=== PATIENT | male | born 1960 | race Caucasian/White ===

== ENCOUNTER 2018-03-17 11:59 | Emergency (ER) | payer OTHER ==
[2018-03-17] MEDS ORDERED: ONDANSETRON 4 MG/2 ML VIAL IVP ONE (12:40)
[2018-03-17] MEDS ORDERED: HYDROmorphONE/DILAUDID 2 MG/ML INJ IVP ONE ×2 (12:40→15:18)
[2018-03-17] MEDS ORDERED: NS 1,000 ML IV ONE ×2 (12:40→14:54)
--- NOTE | 2018-03-17 12:40 | EDPHY ---
H & P Stated Complaint: l inguinal pain/dx with hernia Time Seen by Provider: 03/17/18 12:18 HPI/ROS: HPI: This is a 57-year-old male who presents with Chief Complaint: l inguinal pain/dx with hernia Location: Left groin Quality: Bulging and pain Duration: Since this morning Signs and Symptoms: no fever, no nausea, no vomiting, no hematemesis, no blood in stool, no abdominal bloating, no diarrhea, no back pain, no urinary symptoms , + testicular/groin pain, no indigestion, no chest pain, no shortness of breath Timing: Acute on chronic Severity: Moderate to severe Context: Patient has a history of a left inguinal hernia diagnosed in 2010, normally self reducible, presents this morning with waking up with left inguinal pain and swelling and not being able to reduce his hernia. Patient reports that he has constant, moderate, nonradiating pain in his left testicle. Denies fever, urinary symptoms, nausea, vomiting. Patient ate a half a pancake prior to arrival in the emergency room which was approximately around 11 :30 a.m. Modifying Factors: Failed attempted self reduced Comment: ROS: A comprehensive 10 system review of systems is otherwise negative aside from elements mentioned in the history of present illness. MEDICAL/SURGICAL/SOCIAL HISTORY: Medical history: Diabetes mellitus. Surgical history: Denies Social history: Nonsmoker. Family history noncontributory. CONSTITUTIONAL: Well-developed, well-nourished elderly male, awake and alert, no obvious distress HEENT: Atraumatic and normocephalic, PERRL, EOMI. Nares patent; no rhinorrhea; no nasal mucosal edema. Tympanic membranes clear. Oropharynx clear, no exudate and moist pink mucosa. Airway patent. No lymphadenopathy. No meningismus. Cardiovascular: Normal S1/S2, regular rate, regular rhythm, without murmur rub or gallop. PULMONARY/CHEST: Symmetrical and nontender. Clear to auscultation bilaterally. Good air movement. No accessory muscle usage. ABDOMEN: Soft, nondistended, nontender, no rebound, no guarding, no peritoneal signs, no masses or organomegaly. No CVAT. Male : circumcised penis, bilateral descended testes, left testicular swelling , left testicular bulging/mass EXTREMITIES: 2/2 pulses, strength 5/5, no deformities, no clubbing, no cyanosis or edema. NEUROLOGICAL: no focal neuro deficits. GCS 15. SKIN: Warm and dry, no erythema. no rash. Good capillary refill. Source: Patient Exam Limitations: No limitations - Personal History Current Tetanus Diphtheria and Acellular Pertussis (TDAP): Yes - Medical/Surgical History Hx Asthma: No Hx Chronic Respiratory Disease: No Hx Diabetes: Yes Hx Cardiac Disease: No Hx Renal Disease: No Hx Cirrhosis: No Hx Alcoholism: No Hx HIV/AIDS: No Hx Splenectomy or Spleen Trauma: No Other PMH: inguinal hernia - Social History Smoking Status: Never smoked Constitutional: Initial Vital Signs Temperature (C) 36.5 C 03/17/18 12:10 Heart Rate 54 L 03/17/18 12:10 Respiratory Rate 18 03/17/18 12:10 Blood Pressure 138/81 H 03/17/18 12:10 O2 Sat (%) 97 03/17/18 12:10 O2 Delivery Mode Nasal Cannula O2 (L/minute) 2 Allergies/Adverse Reactions: No Known Allergies Allergy (Unverified 03/17/18 12:10) Home Medications: Medication Instructions Recorded Januvia 100 MG (*) 03/17/18 Metformin 1000 mg 03/17/18 Medical Decision Making - Diagnostics Imaging Results: Imaging Impressions Pelvis CT 03/17/18 12:40 Impression: 1. Bilateral inguinal hernias, left greater than right. The left inguinal hernia contains a nonobstructed loop of descending colon. 2. Severely dilated right great saphenous vein at the saphenofemoral junction suggestive of severe venous insufficiency which may result in symptomatic varicose veins. Florence Mcgregor was notified of these findings by telephone at 2:58 PM on 03/17/2018 ED Course/Re-evaluation: Vital signs reviewed and stable upon arrival. IV access and laboratory studies along with CT pelvis with contrast ordered Patient given 1 L normal saline, IV Dilaudid 1 mg and IV Zofran 4 mg 1408: Patient being taken to CT scan. 1443: Notified by RN that patient vomiting. IV Phenergan 12.5 mg given 1454: Called by radiologist who advised that CT pelvis scan shows hernia with a loop of colon on the left but no obstruction. ED decision to consult General surgery. Spoke with Dr. Naidu kindly agrees to consult on the patient 1515: Dr. Naidu at bedside. IV Dilaudid 2 mg given for reduction at bedside. 1545: Dr. Naidu was able to reduce the hernia at bedside. Adequate relief of pain. Dr. Naidu recommends outpatient elective herniorrhaphy with cardiac clearance prior. This patient was seen under the supervision of my secondary supervising physician. I evaluated care for this patient independently. Discussed this patient with Dr. Gaitan who did not see the patient. Differential Diagnosis: Differential diagnosis includes but is not limited to left inguinal hernia, incarcerated hernia, small-bowel obstruction, diverticulitis, urinary tract infection. - Data Points Laboratory Results: Laboratory Results 03/17/18 12:54 03/17/18 12:54 03/17/18 03/17/18 12:54 12:54 WBC 5.83 10^3/uL 10^3/uL (3.80-9.50) RBC 4.81 10^6/uL 10^6/uL (4.40-6.38) Hgb 14.6 g/dL g/dL (13.7-17.5) Hct 41.6 % % (40.0-51.0) MCV 86.5 fL fL (81.5-99.8) MCH 30.4 pg pg (27.9-34.1) MCHC 35.1 g/dL g/dL (32.4-36.7) RDW 12.0 % % (11.5-15.2) Plt Count 192 10^3/uL 10^3/uL (150-400) MPV 10.6 fL fL (8.7-11.7) Neut % (Auto) 75.0 % H % (39.3-74.2) Lymph % (Auto) 16.6 % % (15.0-45.0) [place] % (Auto) 6.3 % % (4.5-13.0) Eos % (Auto) 0.9 % % (0.6-7.6) Baso % (Auto) 0.5 % % (0.3-1.7) Nucleat RBC Rel Count 0.0 % % (0.0-0.2) Absolute Neuts (auto) 4.37 10^3/uL 10^3/uL (1.70-6.50) Absolute Lymphs (auto) 0.97 10^3/uL L 10^3/uL (1.00-3.00) Absolute Monos (auto) 0.37 10^3/uL 10^3/uL (0.30-0.80) Absolute Eos (auto) 0.05 10^3/uL 10^3/uL (0.03-0.40) Absolute Basos (auto) 0.03 10^3/uL 10^3/uL (0.02-0.10) Absolute Nucleated RBC 0.00 10^3/uL 10^3/uL (0-0.01) Immature Gran % 0.7 % % (0.0-1.1) Immature Gran # 0.04 10^3/uL 10^3/uL (0.00-0.10) Sodium 133 mEq/L L mEq/L (135-145) Potassium 4.4 mEq/L mEq/L (3.5-5.2) Chloride 101 mEq/L mEq/L (97-110) Carbon Dioxide 24 mEq/l mEq/l (22-31) Anion Gap 8 mEq/L mEq/L (6-14) BUN 14 mg/dL mg/dL (7-23) Creatinine 0.8 mg/dL mg/dL (0.7-1.3) Estimated GFR > 60 Glucose 171 mg/dL H mg/dL (70-100) Calcium 9.3 mg/dL mg/dL (8.5-10.4) Total Bilirubin 0.6 mg/dL mg/dL (0.1-1.4) Conjugated Bilirubin 0.3 mg/dL mg/dL (0.0-0.5) Unconjugated Bilirubin 0.3 mg/dL mg/dL (0.0-1.1) AST 21 IU/L IU/L (17-59) ALT 24 IU/L IU/L (21-72) Alkaline Phosphatase 44 IU/L IU/L (38-126) Total Protein 6.5 g/dL g/dL (6.3-8.2) Albumin 4.0 g/dL g/dL (3.5-5.0) Medications Given: Discontinued Medications Hydromorphone HCl (Dilaudid) 1 mg IVP EDNOW ONE Stop: 03/17/18 12:41 Last Admin: 03/17/18 13:05 Dose: 1 mg Hydromorphone HCl (Dilaudid) 2 mg IVP EDNOW ONE Stop: 03/17/18 15:19 Last Admin: 03/17/18 15:20 Dose: Not Given Sodium Chloride (Ns) 1,000 mls @ 0 mls/hr IV EDNOW ONE; Wide Open PRN Reason: Protocol Stop: 03/17/18 12:41 Last Admin: 03/17/18 13:05 Dose: 1,000 mls Sodium Chloride (Ns) 1,000 mls @ 0 mls/hr IV EDNOW ONE; Wide Open PRN Reason: Protocol Stop: 03/17/18 14:55 Last Admin: 03/17/18 14:59 Dose: 1,000 mls Ondansetron HCl (Zofran) 4 mg IVP EDNOW ONE Stop: 03/17/18 12:41 Last Admin: 03/17/18 13:05 Dose: 4 mg Promethazine HCl (Phenergan) 12.5 mg IVP ONCE ONE Stop: 03/17/18 14:42 Last Admin: 03/17/18 14:44 Dose: 12.5 mg Departure - Departure Disposition: Home, Routine, Self-Care Clinical Impression: Incarcerated left inguinal hernia Bilateral inguinal hernia Qualifiers: Obstruction and gangrene presence: without obstruction or gangrene Recurrence: recurrent Qualified Code(s): K40.21 - Bilateral inguinal hernia, without obstruction or gangrene, recurrent Condition: Good Instructions: Inguinal Hernia (ED) Additional Instructions: Take Tylenol 650 mg every 4 hours and/or Ibuprofen 600 mg every 8 hours with food as needed for pain. Apply ice for 30 minutes at a time; 2-3 times per day for the next 1-2 days. Please follow-up General surgery next 1-2 weeks. You will require elective outpatient inguinal hernia repair. Follow-Up: Please follow-up as noted above. Follow-up sooner if your condition worsens or if you develop any new problems. Call as soon as possible for an appointment. Be clear when you call for an appointment that this is an Emergency Department follow-up. Contact the Emergency Department if you have trouble arranging follow-up care. Our referrals are not based on your insurance network. When time allows, contact your insurance carrier to verify the referral physician is in your plan. If not, get a referral for an in-network support specialist. Referrals: DYANA MARTINEZ [Primary Care Provider] - As per Instructions Shavon Vasquez MD [Medical Doctor] - As per Instructions
[2018-03-17 13:12] LABS: PLATELET COUNT 192 10^3/uL (150-400)
[2018-03-17] MEDS ORDERED: IOPAMIDOL (ISOVUE 370) 100 ML BTL IV ONE (13:54)
[2018-03-17] MEDS ORDERED: PROMETHAZINE HCL 25 MG/ML INJ IVP ONE (14:41)
[2018-03-17 16:04] VITALS: BP 133/78
--- NOTE | 2018-03-17 18:57 | GCON ---
REASON FOR ER CONSULTATION: 1. Incarcerated left (probable) direct inguinal hernia. 2. Type 2 diabetes. HISTORY: The patient is a 57-year-old white male who was discovered in 2010 to have a small left inguinal hernia. The patient was seen in consultation by a surgeon who opted not to repair it at the time. It has gotten larger over the interim. It has never been painful for him, until today. He has always been able to reduce it before today, even when in the standing position. SOCIAL HISTORY: He is not a smoker. He does drink 1 glass of wine per night. ALLERGIES: He has no known drug allergies. PAST MEDICAL HISTORY: He has been a type 2 diabetic since 2005. His hemoglobin A1c most recently has risen to 7.0 from 6.7. He takes metformin 1000 mg twice a day. He takes Januvia 1 tablet a day. His only surgical experience has been a VATS-related pleurodesis in response to 3 right spontaneous pneumothoraces. There is no history of rheumatic fever, tuberculosis, hepatitis, or transfusions. REVIEW OF SYSTEMS: He has had 1 dental implant and several dental crowns. He has had gum surgery. His last stress test was 12 years ago. There are no bleeding disorders, clotting disorders, or difficulty with anesthesia. There are no limits on his activities. No history of steroid use. FAMILY HISTORY: Important family note is that his father of a myocardial infarction at age 69. His first myocardial infarction was under age 54. The patient has no limits on his activities. He has not had any steroids in the last 6 months. PHYSICAL EXAMINATION: GENERAL: The patient is seen in ER room 9. He is awake, alert, oriented, and personable. NECK: Unremarkable. There are no carotid bruits. Thyroid is not enlarged. LUNGS: Clear to auscultation. CARDIAC: S1, S2 to be normal. Normal split of S2, without murmurs, rubs, or gallops. BACK: Unremarkable. ABDOMEN: Minimally distended. He does have a large left inguinal hernia. I feel this is probably direct. With narcotics and Trendelenburg, I am able to reduce the hernia and bring his pain back to his usual 1 level. The hernia does come out again but is not tender for him. EXTREMITIES: Upper extremities are unremarkable. Lower extremities show about 2+ edema at the ankles. RECOMMENDATIONS: I have talked to him about a surgical plan. I have suggested that he see his family doctor, and because of the family history, obtain an updated stress test. I have suggested that he speak with the study he is in for his type 2 diabetes to see if they can control his glucose more closely. I have told him it would be ideal to not be on metformin for the 48 hours prior to his surgery. He was previously seeing a surgeon in [place] and asked if he could see a surgeon here. Dr. Shavon Vasquez is on-call today for general surgery. I have made the referral to her office. I have told the patient in the elective setting we would be able to look at both sides and perhaps repair hernias on both sides if they are present. He understands the advantages of a staged elective approach and wishes to proceed along those lines. I have told him it would be good to try to pursue this aggressively and see if we can have his surgery performed sometime in the next 2-3 weeks. He understands that if he does have a recurrence of his discomfort, that he is to lie down on the floor in essentially a Trendelenburg position and try to reduce it back to a nonpainful level. If that is not possible, he is to come back to the ER. /[id number]/MODL MTDD
== END 2018-03-17 16:04 | disposition home or self-care (01) ==
DX: K40.21 Bilateral inguinal hernia, without obstruction or gangrene, recurrent (principal); I87.8 Other specified disorders of veins; E11.9 Type 2 diabetes mellitus without complications; E86.9 Volume depletion, unspecified
CPT/HCPCS: 96374; J1170; J2405; J2550; Q9967